=== PATIENT | female | born 1960 | race Caucasian/White ===

== ENCOUNTER → 2016-09-16 | Outpatient (CLI) | payer OTHER ==
[~2016-09-16] MED LIST: ASPIRIN PO; AVANDAMET 1 MG/1 TAB PO; CRESTOR PO; LEVAQUIN PO; LISINOPRIL PO; PHENERGAN25 MG PO; TYLOX 5/500 CAP1 CAP PO
--- NOTE | ~2016-09-16 | MY29 ---
[facility] A Service of [facility] RADIOLOGY TEXT RESULTS PATIENT: FER POLANCO LOCATION: [facility] #: [id number] : 60 UNIT #: [id number] AGE: [address]: Gilles Webster MD SEX: F ORDER DR: [id number] [facility] [address] [place], [place] [address] [id number] O MR#: [id number] [facility] #: [id number] NAME: FER POLANCO : 1960 SEX: F STUDY DATE/TIME: 09/16/2016 13:17 UNIT: [facility] ROOM: STUDY DESCRIPTION: MY MAREN SCREENING W/ CAD BILAT Attending Physician: Gilles Webster M.D. Referring Physician: Gilles Webster M.D. Ordering Physician: Gilles Webster M.D. Primary Care Physician: Gilles Webster M.D. MEDICAL IMAGING REPORT This report is preliminary unless electronic signature is present EXAM Digital screening mammogram 09/16/2016 HISTORY 56-year-old woman no risk elevation. Prior stereotactic right breast biopsy. Annual screen. COMPARISON Mammograms date to 09/22/2007 with most recent 01/03/2015. FINDINGS Digital imaging of each breast was completed utilizing screening protocol. Review includes FDA-approved CAD device. Breast parenchyma is fatty replaced. Image-guided biopsy marker stable inferior right breast. There is no interval occurring breast mass or suspicious microcalcifications. I see no architectural distortion. IMPRESSION Negative mammogram. Annual screening recommended. Patients over the age of 40 are entered into a reminder system with target due date for the next mammogram. A result letter will also be sent to the patient. BIRADS: 1 Negative Dictated by... Chadd Mark M.D. THIS IS AN ELECTRONICALLY VERIFIED REPORT Chadd Mark M.D. at 09/17/2016 8:58 AM JBB/amanda [facility] A Service of [facility] RADIOLOGY TEXT RESULTS PATIENT: FER POLANCO [id number] : 60 UNIT #: [id number] AGE: [address]: Gilles Webster MD SEX: F ORDER DR: TD: 09/17/2016 07:09 JOB #: [id number] MEDICAL IMAGING REPORT Page 1 of 1 COPY
== END | disposition home or self-care (01) ==
LOC: CWCC 12:45
DX: Z12.31 Encounter for screening mammogram for malignant neoplasm of breast (principal); Z98.890 Other specified postprocedural states
CPT/HCPCS: G0202